=== PATIENT | female | born 1965 ===

== ENCOUNTER 2023-07-02 09:03 | Emergency (ER) | payer OTHER ==
[~2023-07-02] VITALS: Ht 157.5 cm; Wt 61.7 kg
[2023-07-02 12:54] LABS: HEMATOCRIT 42.2 % (36.0-45.00); HEMOGLOBIN 14.5 g/dL (12.0-15.00); MEAN CELL VOLUME 87.9 fL (80.00-100.00); MEAN CORPUSCULAR HEMOGLOBIN 30.3 pg (27.00-32.0); MEAN CORPUSCULAR HGB CONC 34.4 g/dl (32.0-36.0); PLATELET COUNT 269 K/uL (150-450); RED BLOOD COUNT 4.81 M/uL (4.00-6.00); RED CELL DISTRIBUTION WIDTH 14.6 % (11.5-14.5)
[2023-07-02 13:33] LABS: ALBUMIN 3.8 gm/dL (3.4-5.0); BILIRUBIN TOTAL 0.41 mg/dL (0.3-1.2); CALCIUM 9.5 mg/dL (8.5-10.1); CREATININE SERUM 0.85 mg/dL (0.55-1.02); GFR 68.45; GLOBULINA 4.2 G/DL (2.4-3.5); POTASSIUM 4.02 mEq/L (3.5-5.1)
[2023-07-02 13:38] LABS: D DIMER 0.5 MG/L; PARTIAL THROMBOPLASTIN TIME 24.8 SECONDS (22.0-34.0)
[2023-07-02 13:58] LABS: INR 0.98; PROTHROMBIN TIME 10.3 SECONDS (9.0-11.5)
== END 2023-07-02 14:41 | disposition home or self-care (01) ==
LOC: ER 09:03
PROVIDERS: General Practice
DX: M54.31 Sciatica, right side (principal)